=== PATIENT | male | born 1990 | race African-American/Black ===

== ENCOUNTER → 2025-01-27 | Emergency (ER) | payer MEDICAID ==
[~2025-01-27] VITALS: Ht 167.6 cm; Wt 84.4 kg
[2025-01-27 16:34] VITALS: O2SAT 97
[2025-01-27 16:35] VITALS: BP 135/82; PULSE 94; RESP 16; TEMP 37.1; O2SAT 100
== END ==
LOC: ER 16:25
DX: R51.9 Headache, unspecified (principal); Z53.21 Procedure and treatment not carried out due to patient leaving prior to being seen by health care provider